=== PATIENT | male | born 1965 | race Caucasian/White ===

== ENCOUNTER 2017-10-11 13:11 | Emergency (ER) | payer MEDICAID, OTHER ==
[~2017-10-11] VITALS: Ht 177.8 cm; Wt 86.2 kg
[2017-10-11 13:34] VITALS: BP 145/97
[2017-10-11] MEDS ORDERED: LIDOCAINE 1% (LOCAL ANESTH.) PF 5ml SDV IJ ONE (14:45)
== END 2017-10-11 15:17 | disposition home or self-care (01) ==
LOC: EDBD 13:11 → ER 13:11
DX: S51.812A Laceration without foreign body of left forearm, initial encounter (principal); F17.210 Nicotine dependence, cigarettes, uncomplicated; F12.10 Cannabis abuse, uncomplicated; F15.10 Other stimulant abuse, uncomplicated; Z59.0 Homelessness; W26.8XXA Contact with other sharp object(s), not elsewhere classified, initial encounter; Y93.89 Activity, other specified; Y99.8 Other external cause status; Y92.89 Other specified places as the place of occurrence of the external cause
CPT/HCPCS: 12005

== ENCOUNTER 2020-09-02 01:09 | Emergency (ER) | payer MEDICAID ==
[~2020-09-02] VITALS: Ht 180.3 cm; Wt 93.0 kg
[2020-09-02 03:17] VITALS: BP 151/79
[2020-09-02] MEDS ORDERED: cefTRIAXone SOD 1,000 MG VL IM ONE (03:30)
[2020-09-02] MEDS ORDERED: IBUPROFEN 800 MG TAB PO ONE (03:30)
== END 2020-09-02 03:41 | disposition home or self-care (01) ==
LOC: ER 01:11
DX: S61.032A Puncture wound without foreign body of left thumb without damage to nail, initial encounter (principal); F12.10 Cannabis abuse, uncomplicated; F17.200 Nicotine dependence, unspecified, uncomplicated; Z87.442 Personal history of urinary calculi; X58.XXXA Exposure to other specified factors, initial encounter; Y93.89 Activity, other specified; Y92.89 Other specified places as the place of occurrence of the external cause; Y99.8 Other external cause status
CPT/HCPCS: 73130; 96372; 99283; J0696

== ENCOUNTER 2021-02-13 11:08 | Emergency (ER) | payer MEDICAID ==
[~2021-02-13] VITALS: Ht 180.3 cm; Wt 93.0 kg
[2021-02-13 11:09] VITALS: BP 147/85
[2021-02-13] MEDS ORDERED: ACETAMINOPHEN 325 MG TAB PO ONE (12:30)
== END 2021-02-13 12:49 | disposition left against medical advice (07) ==
LOC: ER 11:08
DX: M25.562 Pain in left knee (principal); F17.210 Nicotine dependence, cigarettes, uncomplicated; Z87.442 Personal history of urinary calculi

== ENCOUNTER 2023-09-28 17:32 | Emergency (ER) | payer MEDICAID ==
[~2023-09-28] VITALS: Ht 180.3 cm; Wt 95.5 kg
[2023-09-28 18:15] VITALS: BP 133/81; PULSE 88; RESP 18; O2SAT 97
== END 2023-09-29 00:12 | disposition left against medical advice (07) ==
LOC: ER 17:32 → EDBD 17:32 → ER 09-29 00:12
DX: M25.561 Pain in right knee (principal); R22.41 Localized swelling, mass and lump, right lower limb; Z53.21 Procedure and treatment not carried out due to patient leaving prior to being seen by health care provider; W01.0XXA Fall on same level from slipping, tripping and stumbling without subsequent striking against object, initial encounter; Y93.89 Activity, other specified; Y92.89 Other specified places as the place of occurrence of the external cause; Y99.8 Other external cause status